=== PATIENT | female | born 1945 | race Caucasian/White ===

== ENCOUNTER 2022-06-10 16:48 | Inpatient (IN) | payer MEDICARE, OTHER ==
[~2022-06-10] VITALS: Ht 152.4 cm; Wt 70.3 kg
[2022-06-10] MEDS ORDERED: IV NS 0.9% 1,000 ML BAG IV ONE (17:00)
--- NOTE | 2022-06-10 17:40 | NUR ---
IV LINE ESTABLISHED ON RAC #20, BLOOD DRAWN AND COLLECTED BY PHLEB TECH AT BEDSIDE
[2022-06-10 17:49] LABS: BASOPHILS % (AUTO) 0.3 % (0.0-2.0); EOSINOPHILS % (AUTO) 0.1 % (0.0-6.0); HEMATOCRIT 33 % (33-45); HEMOGLOBIN 10.8 g/dL (11.5-14.8); LYMPHOCYTES # (AUTO) 1.2 K/uL (0.8-4.8); LYMPHOCYTES % (AUTO) 10.9 % (20.0-44.0); MEAN CORPUSCULAR HGB CONC 33 g/dl (31.0-36.0); MEAN CORPUSCULAR VOLUME 89 fL (82-100); MONOCYTES # (AUTO) 0.8 K/uL (0.1-1.30); MONOCYTES % (AUTO) 7.6 % (2.0-12.0); NEUTROPHILS # (AUTO) 8.9 K/uL (1.8-8.9); NEUTROPHILS % (AUTO) 81.1 % (43.0-81.0); PLATELET COUNT (AUTO) 197 K/uL (150-450); RED BLOOD CELL COUNT(AUTO) 3.68 MIL/uL (4.0-5.2); WHITE BLOOD COUNT (AUTO) 10.9 K/uL (4.3-11.0)
[2022-06-10 18:07] LABS: CALCIUM, SERUM 8.8 mg/dL (8.5-10.1); CARBON DIOXIDE 25 mmol/L (21-32); CHLORIDE 103 mmol/L (98-107); CREATININE 1.5 mg/dL (0.6-1.3); GLUCOSE 251 mg/dL (74-106); POTASSIUM 4.3 mmol/L (3.5-5.1); SODIUM SERUM 135 mmol/L (136-145); UREA NITROGEN, BLOOD 32 mg/dL (7-18)
[2022-06-10 18:13] LABS: ALANINE AMINOTRANSFERASE 19 U/L (12-78); ALBUMIN 2.7 g/dL (3.4-5.0); ALKALINE PHOSPHATASE 45 U/L (46-116); ASPARTATE AMINOTRANSFERASE 21 U/L (15-37); BILIRUBIN,DIRECT 0.1 mg/dL (0.0-0.2); BILIRUBIN,TOTAL 0.3 mg/dL (0.2-1.0); TOTAL PROTEIN, SERUM 7.2 g/dL (6.4-8.2)
--- NOTE | 2022-06-10 18:35 | NUR ---
PT ABLE TO AMBULATE TO BATHROOM W/ MIN ASSIST.
--- NOTE | 2022-06-10 18:40 | NUR ---
URINE SPECIMEN COLLECTED AND SENT TO LAB
[2022-06-10] MEDS ORDERED: CARV25TA2 PO (19:05)
[2022-06-10] MEDS ORDERED: CLOP75TA15 PO (19:05)
[2022-06-10] MEDS ORDERED: ISOS60TA72 PO (19:05)
[2022-06-10] MEDS ORDERED: OMEP20CA15 PO (19:05)
[2022-06-10] MEDS ORDERED: EMPA10TA PO (19:05)
[2022-06-10] MEDS ORDERED: ASPI-1420 PO (19:05)
[2022-06-10] MEDS ORDERED: OLME1TAB90 PO (19:05)
[2022-06-10] MEDS ORDERED: ICOS1CAP PO (19:05)
[2022-06-10] MEDS ORDERED: GLIM4TAB37 PO (19:05)
[2022-06-10] MEDS ORDERED: MELA3TAB41 PO (19:05)
[2022-06-10] MEDS ORDERED: CALC-15 PO (19:05)
[2022-06-10] MEDS ORDERED: SITA1TAB6 PO (19:05)
[2022-06-10] MEDS ORDERED: ROSU20TA32 PO (19:05)
[2022-06-10] MEDS ORDERED: POLY15DR40 EACHEYE (19:08)
--- NOTE | 2022-06-10 19:34 | NUR ---
EPIC PANEL CALLED CHRIS DUCKWORTH
[2022-06-10 19:53] LABS: BILIRUBIN,URINE NEGATIVE (NEGATIVE); COLOR,URINE YELLOW (YELLOW); LEUKOCYTE ESTERASE ,URINE NEGATIVE (NEGATIVE); NITRITE, URINE NEGATIVE (NEGATIVE); PH,URINE 5.5 (5.0-8.0); PROTEIN,URINE 100 mg/dl (NEGATIVE); UGLUCOSE NEGATIVE (NEGATIVE); UROBILINOGEN,URINE 0.2 EU/dL (0.2)
[2022-06-10] MEDS ORDERED: CEFTRIAXONE 1GM BAG (ER ONLY) 50 ML IV ONE ×2 (20:00→20:05)
[2022-06-10] MEDS ORDERED: AZITHROMYCIN 500 MG in IV D5W 250 ML IV ONE (20:00)
[2022-06-10 20:22] LABS: BACTERIA,URINE 1+ /HPF (None Seen); HYALINE CASTS, URINE Few /LPF (None Seen); MUCUS,URINE Few /LPF (None Seen)
[2022-06-10] MEDS ORDERED: AZITHROMYCIN 500 MG VIAL ONE (20:29)
--- NOTE | 2022-06-10 20:47 | NUR ---
PT REPORTED TO FEEL SHORT OF BREATH O2 SAT 90% NOTED. APPLIED O2 NASAL CANNULA 2L AND SAT PT UP IN HIGHFOWLERS POSITION, NOW O2 SAT 98%. MADE AWARE
--- NOTE | 2022-06-10 21:40 | NUR ---
RN NOTES RECEIVED REPORT FROM ER NURSE CARLIN FOR DELROY.
--- NOTE | 2022-06-10 21:44 | NUR ---
REPORT GIVEN TO DILCIA CARRILLO FOR DELROY
[2022-06-10 22:00] VITALS: BP 150/71
--- NOTE | 2022-06-10 22:04 | NUR ---
PT TRANSPORTED TO UNIT. NO DISTRESS NOTED.
--- NOTE | 2022-06-10 22:05 | NUR ---
220 Admitted from ER 77 year old female via rhomer with Dx of CAP. Patient awake alert and oriented. Lithuanian speaking only, daughter Sera with patient translating. Patient able to ambulate to bed with assist but noted to become tired and short of breath easily. Placed on high fowlers position for max oxygenation. O2 sat at 97% on 3L NC. Admission care and skin assessment done. No skin breakdown noted. Vital signs taken and recorded. Oriented to room. Call light placed within reach and instructed to call for assistance.
[2022-06-10] MEDS: IV NS 0.9% 1,000 ML IV PRN (22:45)
--- NOTE | 2022-06-10 23:00 | NUR ---
RN NOTES PATIENT NOTED WITH TEMP- 100.7 DEGREE FAHRENHEIT, COOLING MEASURE PROVIDED, ACETAMINOPHEN 325MG GIVEN. CONTINUE TO MONITOR.
[2022-06-10] MEDS: ACETAMINOPHEN 325 MG TABLET PO PRN (23:04)
--- NOTE | 2022-06-11 | NUR ---
RN NOTES TEMPERATURE RECHECKED, OBTAINED 100.0 DEGREE FAHRENHEIT, CONTINUE COOLING MEASURE.
[2022-06-11] MEDS ORDERED: DEXTROSE 50%-WATER 50 ML DISP.SYRIN IV PRN (01:00)
[2022-06-11 04:00] VITALS: BP 144/62
--- NOTE | 2022-06-11 06:45 | NUR ---
RN OPENING NOTES PATIENT REMAINED STABLE THROUGH OUT THE SHIFT. RESPIRATORY EVEN AND UNLABORED, NO SOB NOTED. AFEBRILE, NO S/S OF DISTRESS NOTED. WITH IVF NS @ 50 ML/HR. REPOSITION PATIENT EVERY 2 HRS. ALL DUE MEDS GIVEN. ALL SAFETY PRECAUTION PROVIDED, BED IN LOWEST POSITION, LOCKED. BED ALARM ARMED. CALL LIGHT WITH IN REACH. REPORT GIVEN TO MORNING SHIFT NURSE FOR CONTINUITY OF CARE.
[2022-06-11 07:06] LABS: BASOPHILS % (AUTO) 0.2 % (0.0-2.0); EOSINOPHILS % (AUTO) 0.3 % (0.0-6.0); HEMATOCRIT 30 % (33-45); LYMPHOCYTES # (AUTO) 1.1 K/uL (0.8-4.8); LYMPHOCYTES % (AUTO) 11.9 % (20.0-44.0); MEAN CORPUSCULAR HGB CONC 34 g/dl (31.0-36.0); MEAN CORPUSCULAR VOLUME 88 fL (82-100); MONOCYTES # (AUTO) 0.9 K/uL (0.1-1.30); MONOCYTES % (AUTO) 9.6 % (2.0-12.0); NEUTROPHILS # (AUTO) 7.1 K/uL (1.8-8.9); PLATELET COUNT (AUTO) 179 K/uL (150-450); RED BLOOD CELL COUNT(AUTO) 3.36 MIL/uL (4.0-5.2); WHITE BLOOD COUNT (AUTO) 9.1 K/uL (4.3-11.0)
[2022-06-11 07:15] LABS: ALANINE AMINOTRANSFERASE 22 U/L (12-78); ALBUMIN 2.5 g/dL (3.4-5.0); ALKALINE PHOSPHATASE 41 U/L (46-116); ASPARTATE AMINOTRANSFERASE 24 U/L (15-37); BILIRUBIN,TOTAL 0.3 mg/dL (0.2-1.0); CALCIUM, SERUM 8.3 mg/dL (8.5-10.1); CARBON DIOXIDE 23 mmol/L (21-32); CHLORIDE 106 mmol/L (98-107); GLUCOSE 124 mg/dL (74-106); PHOSPHORUS 2.2 mg/dL (2.5-4.9); POTASSIUM 4.1 mmol/L (3.5-5.1); SODIUM SERUM 138 mmol/L (136-145); TOTAL PROTEIN, SERUM 6.8 g/dL (6.4-8.2); UREA NITROGEN, BLOOD 22 mg/dL (7-18)
[2022-06-11] MEDS: BLOOD SUGAR DIAGNOSTIC 1 EACH STRIP IN SCH ×4 (07:18→22:25)
--- NOTE | 2022-06-11 07:20 | NUR ---
RN OPENING NOTE PT IS ALERT AND ORIENTED X3-4.CZECH SPEAKING ONLY. PT MED SURG STATUS. PT IS AMBULATORY WITH ASSIST. SKIN INTACT.FALL RISK. PATIENT HAS R AC 20 GAUGE. IV PATENT, INTACT AND FLUSHING WELL. ALL MEDS GIVEN. DUE TO PT POOR APPETITE, FAMILY OF PT REQUESTED NUTRITIONAL SUPPLEMENT. ROGERS PÉREZ. ORDER PLACED AND CARRIED OUT. NORMAL SALINE RUNNING @ 50CC/HR.NO SIGNS OF PAIN OR DISCOMOFRT AT THIS TIME. FAMILY AT BEDSIDE. ALL SAFETY PRECAUTION PROVIDED, BED IN LOWEST POSITION, LOCKED. BED ALARM ARMED. CALL LIGHT WITH IN REACH.
[2022-06-11 08:00] VITALS: BP 149/73
[2022-06-11 08:29] LABS: THYROID STIMULATING HORMONE 1.548 uIU/mL (0.358-3.74)
--- NOTE | 2022-06-11 10:01 | NUR ---
rn note pulled out rocephin, but antibotic is leaking.notified pharmacy said to toss it and they will bring up a new one
[2022-06-11] MEDS: HEPARIN SODIUM, PORCINE 5000 UNITS/1 ML VIAL SQ SCH ×2 (10:07→16:43)
[2022-06-11] MEDS: CEFTRIAXONE 1 G in IV D5W 50 ML IV SCH (10:10)
[2022-06-11] MEDS: ACETAMINOPHEN 325 MG TABLET PO PRN ×2 (11:12→20:23)
[2022-06-11] MEDS ORDERED: NEUTRA PHOS 1 POWD.PACKET PO ONE (12:00)
--- NOTE | 2022-06-11 14:44 | NUR ---
rn note pt bs currently 251. checked patient casette and insulin wasnt in the casette. called pharmacy 2 times for them to bring it up.said they would bring it up with other medications.
[2022-06-11] MEDS: IV NS 0.9% 1,000 ML IV PRN (15:35)
[2022-06-11 16:00] VITALS: BP 150/79
[2022-06-11] MEDS: INSULIN REGULAR, HUMAN 100 UNIT/ML 3 ML VIAL SQ PRN ×2 (18:16→22:26)
--- NOTE | 2022-06-11 18:20 | NUR ---
RN NOTE checked blood sugar 251, insulin was not given due to pharmacy delay and rechecked for 1730. bs 198 adminstered 3 units of insulin pt had fever 99.5, tylenol was given decreased to 98.7 pt temperature for 1600 99.1 rechecked and temperature currently 98.6
--- NOTE | 2022-06-11 19:09 | NUR ---
RN CLOSING NOTE PT IS ALERT AND ORIENTED X3-4.UGANDAN SPEAKING ONLY. PT MED SURG STATUS. PT IS AMBULATORY WITH ASSIST. SKIN INTACT.FALL RISK. PATIENT HAS R AC 20 GUAGE. IV PATENT AND FLUSHING WELL. NORMAL SALINE RUNNING @ 50ML/HR.NO SIGNS OF PAIN OR DISCOMOFRT AT THIS TIME. FAMILY AT BEDSIDE. ALL SAFETY PRECAUTION PROVIDED, BED IN LOWEST POSITION, LOCKED. BED ALARM ARMED. CALL LIGHT WITH IN REACH.
[2022-06-11 20:00] VITALS: BP 165/59
[2022-06-11] MEDS ORDERED: GUAIFENESIN/D-METHORPHAN HB 5 ML UDC PO PRN (20:00)
[2022-06-11] MEDS ORDERED: ALBUTEROL FS 2.5 MG/0.5 ML VIAL.NEB NEB PRN (20:00)
[2022-06-11] MEDS ORDERED: IPRATROPIUM BROMIDE 14 GM INHALER (or 12.9 GM) IH PRN (20:00)
--- NOTE | 2022-06-11 20:00 | NUR ---
Informed Lashanda hillman chief innovation officer, that patient is c/o persistent cough and sob, and per Lashanda she will put orders.
--- NOTE | 2022-06-11 20:35 | NUR ---
Informed Lashanda that pt noted with systolic blood pressure above 160s-170s, and there is no medication reconciliation done, and pt should be on carvedilol in am, per Lashanda, she will follow up with medication recon and order something for high blood pressure.
[2022-06-11] MEDS ORDERED: IPRATROPIUM NEB FS 0.5 MG/2.5 ML AMPUL.NEB NEB PRN (21:00)
[2022-06-11] MEDS: ATORVASTATIN 40 MG TABLET PO SCH (21:17)
[2022-06-11] MEDS: CARVEDILOL 12.5 MG TABLET PO SCH (21:19)
[2022-06-11] MEDS ORDERED: Medication Not On Formulary EA (Melatonin 3 MG) PO SCH (22:00)
[2022-06-12] VITALS: BP 121/80
[2022-06-12] MEDS ORDERED: hydrALAZINE HCL IV 20 MG VIAL IV PRN
[2022-06-12 04:00] VITALS: BP 147/71
--- NOTE | 2022-06-12 06:47 | NUR ---
END OF SHIFT, PATIENT IN BED, A/O X4, CITIZEN OF [place] SPEAKING, AT 4LPM VIA NC, WITH OPTIMAL O2 SAT LEVEL, FEBRILE LAST NIGHT, CONTINUE WITH CHILLS, FEVER, COUGH, PCR COVID TEST DONE LAST NIGHT, RESULTS PENDING, CONTINUE ON IV ATB AND IVF ORDERED, ISOLATION PRECAUTIONS MAINTAINED, ALL SAFETY PRECAUTIONS OBSERVE, BED LOCK AND IN LOWEST POSITION, S/R OF BED UPX2, WILL ENDORSE CONTINUITY OF CARE TO ONCOMING NURSE
[2022-06-12] MEDS: PANTOPRAZOLE 40 MG TABLET.DR PO SCH (07:32)
--- NOTE | 2022-06-12 08:00 | NUR ---
INSULATION ESTIMATOR NOTE , PATIENT IN BED, A/O X4, AT 4LPM VIA NC, WITH OPTIMAL O2 SATURATION 100%,CONTINUE ON IVF ORDERED, ISOLATION PRECAUTIONS MAINTAINED, ALL SAFETY PRECAUTIONS OBSERVE, BED LOCK AND IN LOWEST POSITION, S/R OF BED UPX2, RT AC H AND LT FA HL INTACT AND FLUSHED WELL .WILL CONT TO MONITOR CLOSELY Addendum: 06/12/22 at 0912 by SHANTI FERRARI RN ASSISTED TO BR ,ABLE TO URINATE WELL, NOT IN DISTRESS
[2022-06-12] MEDS: ENSURE ENLIVE 237 ML LIQUID (VANILLA) PO SCH ×2 (08:05→16:18)
[2022-06-12] MEDS: BLOOD SUGAR DIAGNOSTIC 1 EACH STRIP IN SCH ×4 (08:25→21:58)
[2022-06-12] MEDS: CEFTRIAXONE 1 G in IV D5W 50 ML IV SCH (08:48)
[2022-06-12] MEDS: POLYVINYL ALCOHOL 15 ML BOTTLE EACHEYE SCH ×3 (08:48→16:58)
[2022-06-12] MEDS: ASPIRIN EC 81 MG TABLET.DR PO SCH (08:49)
[2022-06-12] MEDS: CALCIUM CARB 250MG /VITAMIN D 1 UDTAB PO SCH (08:49)
[2022-06-12] MEDS: CLOPIDOGREL BISULFATE 75 MG TABLET PO SCH (08:49)
[2022-06-12] MEDS: GLIMEPIRIDE 4 MG TABLET PO SCH (08:49)
[2022-06-12] MEDS: HEPARIN SODIUM, PORCINE 5000 UNITS/1 ML VIAL SQ SCH ×2 (08:50→16:20)
[2022-06-12] MEDS: CARVEDILOL 12.5 MG TABLET PO SCH ×2 (08:52→21:53)
[2022-06-12] MEDS: ISOSORBIDE MONONITRATE (30MG) 30 MG TAB.SR.24H PO SCH (08:52)
[2022-06-12] MEDS: INSULIN REGULAR, HUMAN 100 UNIT/ML 3 ML VIAL SQ PRN ×3 (08:58→16:52)
[2022-06-12] MEDS ORDERED: Medication Not On Formulary EA (Icosapent Ethyl (Vascepa) 2 GM) PO SCH (09:00)
[2022-06-12] MEDS ORDERED: Medication Not On Formulary EA (Sitagliptin Phos/Metformin Hcl (Janumet 50-1,000 Mg Tabl PO SCH (09:00)
[2022-06-12] MEDS ORDERED: Medication Not On Formulary EA (Olmesartan/Hydrochlorothiazide (Olmesartan-Hctz 40-12.5 PO SCH (09:00)
--- NOTE | 2022-06-12 10:15 | NUR ---
ms ross note assisted to br all needs attended, not in distress, will cont to monitor, on ivf as ordered Addendum: 06/12/22 at 1040 by SHANTI FERRARI RN still pending pcr test awaiting for result
[2022-06-12 10:16] LABS: BASOPHILS % (AUTO) 0.3 % (0.0-2.0); EOSINOPHILS % (AUTO) 0.9 % (0.0-6.0); HEMATOCRIT 29 % (33-45); HEMOGLOBIN 9.7 g/dL (11.5-14.8); LYMPHOCYTES # (AUTO) 0.7 K/uL (0.8-4.8); LYMPHOCYTES % (AUTO) 11.7 % (20.0-44.0); MEAN CORPUSCULAR HGB CONC 33 g/dl (31.0-36.0); MEAN CORPUSCULAR VOLUME 89 fL (82-100); MONOCYTES # (AUTO) 0.6 K/uL (0.1-1.30); MONOCYTES % (AUTO) 8.8 % (2.0-12.0); NEUTROPHILS # (AUTO) 4.9 K/uL (1.8-8.9); NEUTROPHILS % (AUTO) 78.3 % (43.0-81.0); PLATELET COUNT (AUTO) 199 K/uL (150-450); RED BLOOD CELL COUNT(AUTO) 3.29 MIL/uL (4.0-5.2); WHITE BLOOD COUNT (AUTO) 6.3 K/uL (4.3-11.0)
[2022-06-12 10:39] LABS: ALBUMIN 2.3 g/dL (3.4-5.0); BILIRUBIN,TOTAL 0.2 mg/dL (0.2-1.0); CALCIUM, SERUM 8.2 mg/dL (8.5-10.1); CREATININE 1.2 mg/dL (0.6-1.3); MAGNESIUM 1.6 mg/dL (1.8-2.4); PHOSPHORUS 2.7 mg/dL (2.5-4.9); POTASSIUM 4.3 mmol/L (3.5-5.1); TOTAL PROTEIN, SERUM 6.6 g/dL (6.4-8.2)
[2022-06-12 12:00] VITALS: BP 116/70
--- NOTE | 2022-06-12 12:25 | NUR ---
DIRECTOR OUTCOMES NOTE DR PÉREZ AT BEDSIDE SPOKE WITH FAMILY , ALL CONCERNS ADDRESSED, WILL CONT TO MONITOR CLOSELY, PER DR PÉREZ [place] FAMILY SEE PATIENT INSIDE ROOM. RAPID TEST FOR COVID NEGATIVE,AWAITING FOR PCR, CALLED TO LABORATORY STATED THAT TEST WILL BE READY TONIGHT OR TOMORROW MORNING Addendum: 06/12/22 at 1230 by SHANTI FERRARI RN ASSISTED TO BR , ABLE TO MAKE BM ,KEEP CLEAN DRY
[2022-06-12] MEDS: LINAGLIPTIN 5 MG TABLET PO SCH (12:44)
[2022-06-12] MEDS: LOSARTAN/HCTZ 50-12.5MG/ 1 EA TABLET PO SCH (12:44)
[2022-06-12] MEDS: IV NS 0.9% 1,000 ML IV PRN (15:03)
[2022-06-12 16:00] VITALS: BP 111/50
[2022-06-12 16:17] VITALS: BP 116/70
[2022-06-12] MEDS: METFORMIN 500 MG TABLET PO SCH (16:22)
--- NOTE | 2022-06-12 16:22 | NUR ---
MS RN NOTE ROUNDS MADE ,ASSISTED TO BR, KEEP CLEAN DRY, NOT IN DISTRESS, ON 3L NC, NO SOB NOTED AT THIS TIME
[2022-06-12] MEDS ORDERED: METFORMIN 500 MG TABLET PO SCH (17:00)
--- NOTE | 2022-06-12 17:09 | NUR ---
RN NOTES NOTED MAGNESIUM LEVEL OF 1.6L, PHARMACY INFORMED, WITH NEW ORDER NOTED AND CARRIED OUT, WILL CONTINUE PLAN OF CARE OF THE PATIENT.
[2022-06-12] MEDS ORDERED: MAGNESIUM OXIDE 400 MG TABLET PO ONE (17:30)
--- NOTE | 2022-06-12 18:34 | NUR ---
MS RN NOTE PATIENT IN BED , ALL NEEDS ATTENDED, ON 3L NC NO SOB NOTED AT THIS TIME, PATIENT ALERT ORIENTED, RT AC AND LT FA HL INTACT AND FLUSHED WELL ,ON IVF ORDERED, BED IN LOWEST AND LOCKED POSITION , WILL CONT TO MONITOR, NOT IN DISTRESS
[2022-06-12 20:00] VITALS: BP 124/48
--- NOTE | 2022-06-12 20:00 | NUR ---
RN NOTE RECEIVED PT WITH DAUGHTER AND GRAND DAUGHTER IN ROOM. PT WALKING AROUND THE ROOM WITH FAMILY SUPERVISION. DENIES ANY DIZZINESS OR SOB. 96% ON RA. DENIES PAIN. REMINDED FAMILY WITH ISOLATION PRECAUTION AND SAFETY MEASURES. WILL CONTINUE TO MONITOR.
[2022-06-12] MEDS: ATORVASTATIN 40 MG TABLET PO SCH (21:53)
[2022-06-13 04:00] VITALS: BP 127/52
--- NOTE | 2022-06-13 07:10 | NUR ---
RN NOTE RECEIVED PATIENT IN BED RESTING ALERT ORIENTED X4 BULGARIAN SPEAKING,VERBALLY RESPONSIVE ON 2L OXYGEN VIA NASAL CANNULA,O2:95% IV SITE IS ON LEFT FOREARM AND RIGHT AC INTACT PATENT ON IV NS 50CC/HR ,CONTIENT BOWEL/BLADDER ,SAFETY MEASURE IMPLEMENT BED IN LOW POSITION AND LOCKED,CALL LIGHT WITHIN REACH,CONTINUE TO MONITOR.
--- NOTE | 2022-06-13 07:27 | NUR ---
RN NOTE PT AWAKE, DENIES ANY PAIN OR SOB. ON O2 AT 2L. NOT IN ANY DISTRESS. CONTINUE ON NS AT 50ML/HR, INFUSING WELL. REMAIN AFEBRILE. ASSISTED TO BEDSIDE COMMODE. ENDORSED TO AM SHIFT NURSE FOR DELROY.
[2022-06-13] MEDS: PANTOPRAZOLE 40 MG TABLET.DR PO SCH (07:31)
[2022-06-13] MEDS: BLOOD SUGAR DIAGNOSTIC 1 EACH STRIP IN SCH (07:32)
[2022-06-13] MEDS: ENSURE ENLIVE 237 ML LIQUID (VANILLA) PO SCH (07:33)
[2022-06-13 08:09] LABS: CALCIUM, SERUM 8.7 mg/dL (8.5-10.1); MAGNESIUM 1.7 mg/dL (1.8-2.4); POTASSIUM 3.9 mmol/L (3.5-5.1)
[2022-06-13] MEDS: POLYVINYL ALCOHOL 15 ML BOTTLE EACHEYE SCH (08:52)
[2022-06-13] MEDS: ISOSORBIDE MONONITRATE (30MG) 30 MG TAB.SR.24H PO SCH (08:53)
[2022-06-13] MEDS: LINAGLIPTIN 5 MG TABLET PO SCH (08:53)
[2022-06-13] MEDS: METFORMIN 500 MG TABLET PO SCH (08:54)
[2022-06-13] MEDS: CARVEDILOL 12.5 MG TABLET PO SCH (08:54)
[2022-06-13] MEDS: LOSARTAN/HCTZ 50-12.5MG/ 1 EA TABLET PO SCH (08:54)
[2022-06-13] MEDS: GLIMEPIRIDE 4 MG TABLET PO SCH (08:55)
[2022-06-13] MEDS: CLOPIDOGREL BISULFATE 75 MG TABLET PO SCH (08:55)
[2022-06-13] MEDS: ASPIRIN EC 81 MG TABLET.DR PO SCH (08:55)
[2022-06-13] MEDS: CALCIUM CARB 250MG /VITAMIN D 1 UDTAB PO SCH (08:55)
[2022-06-13] MEDS: HEPARIN SODIUM, PORCINE 5000 UNITS/1 ML VIAL SQ SCH (08:56)
[2022-06-13] MEDS: CEFTRIAXONE 1 G in IV D5W 50 ML IV SCH (08:57)
[2022-06-13] MEDS ORDERED: MAGNESIUM OXIDE 400 MG TABLET PO ONE (10:00)
[2022-06-13 11:00] VITALS: BP 140/78
--- NOTE | 2022-06-13 11:50 | NUR ---
INVESTMENT CONSULTANT NOTE PATIENT DISCHARGED HOME IN STABLE CONDITION,ALERT ORIENTED X4 [place] SPEAKING ON ROOM AIR O2:97% IV SITES REMOVED,NO BLEEDING NOTED,NO SOB NOT ACUTE DISTRESS NOTED,PATIENT SIGNED ALL DISCHARGE PAPER WORK AND BELONGINGS,INSTRUCTION GIVEN FOR MEDS,AND CONTINUE ATB FOR 4 DAYS,SHE VERBALIZED UNDERSTOOD ALL TEACHING,PATIENT PICKED UP BY HER GRAND DAUGHTER BY PRIVATE CAR ,SHE LEFT HOSPITAL IN STABLE CONDITION.VITAL SIGNS 140/87 HR 85 O2:97% ON ROOM AIR TEMP 97.7
== END 2022-06-13 12:26 | disposition home or self-care (01) | DRG 193 ==
LOC: ER 16:48 → TELE1 20:52 → MEDSG1 06-11 05:16
PROVIDERS: ADMIT Registered Nurse
DX: J15.9 Unspecified bacterial pneumonia (principal); J96.01 Acute respiratory failure with hypoxia; N17.0 Acute kidney failure with tubular necrosis; E87.20 Acidosis, unspecified; E87.1 Hypo-osmolality and hyponatremia; E11.9 Type 2 diabetes mellitus without complications; I10 Essential (primary) hypertension; Z79.02 Long term (current) use of antithrombotics/antiplatelets; Z79.84 Long term (current) use of oral hypoglycemic drugs; Z79.82 Long term (current) use of aspirin; Z79.899 Other long term (current) drug therapy; E66.9 Obesity, unspecified; Z20.822 Contact with and (suspected) exposure to COVID-19; Z28.310 Unvaccinated for COVID-19; Z68.30 Body mass index [BMI] 30.0-30.9, adult; E88.09 Other disorders of plasma-protein metabolism, not elsewhere classified; E83.39 Other disorders of phosphorus metabolism
CPT/HCPCS: 36415; 71045-TC; 80048-TC; 80053-TC; 80076-TC; 81001; 82962-TC; 83605-TC; 83735-TC; 84100-TC; 84443-TC; 84484-TC; 85025-TC; 85730-TC; 87040-TC; 87081-TC; 87086-TC; 87186-TC; 94799-TC; 97116-TC; 97530-TC; C9803; G0378; J0456; J0696; J1644; J1815; J3490; J7030; J7050; J7060; U0003